=== PATIENT | female | born 1950 | race Caucasian/White ===

== ENCOUNTER 2021-11-20 13:10 | Outpatient (CLI) | payer MEDICARE, OTHER, SELFPAY | END 2021-11-20 13:11 | disposition home or self-care (01) | LOC: NFLDREF 11-24 12:41 | PROVIDERS: Visit Provider Student in an Organized Health Care Education/Training Program | DX: N39.0 Urinary tract infection, site not specified (principal) | CPT/HCPCS: 87086 ==

== ENCOUNTER 2023-02-17 10:11 | Outpatient (CLI) | payer MEDICARE, OTHER, SELFPAY | END 2023-02-17 10:12 | disposition home or self-care (01) | LOC: NFLDREF 02-18 10:18 | PROVIDERS: PCP Student in an Organized Health Care Education/Training Program; Referring Provider Student in an Organized Health Care Education/Training Program; Visit Provider Family Medicine | DX: R35.0 Frequency of micturition (principal); N39.0 Urinary tract infection, site not specified; N30.00 Acute cystitis without hematuria | CPT/HCPCS: 87086 ==

== ENCOUNTER 2023-10-27 13:07 | Outpatient (CLI) | payer MEDICARE, OTHER, SELFPAY | END 2023-10-27 13:08 | disposition home or self-care (01) | LOC: NFLDREF 10-31 15:01 | PROVIDERS: PCP Student in an Organized Health Care Education/Training Program; Referring Provider Student in an Organized Health Care Education/Training Program; Visit Provider Nurse Practitioner Family | DX: R30.0 Dysuria (principal) | CPT/HCPCS: 87086 ==

== ENCOUNTER 2024-11-24 10:45 | Outpatient (CLI) | payer MEDICARE, OTHER, SELFPAY | END 2024-11-24 10:46 | disposition home or self-care (01) | LOC: NFLDREF 11-27 14:29 | PROVIDERS: PCP Student in an Organized Health Care Education/Training Program; Referring Provider Student in an Organized Health Care Education/Training Program | DX: R35.0 Frequency of micturition (principal) | CPT/HCPCS: 87086 ==